=== PATIENT | female | born 1990 | race Caucasian/White ===

== ENCOUNTER 2022-12-25 13:30 | Emergency (ER) | payer OTHER, SELFPAY ==
[2022-12-25] VITALS (21 sets, daily range): BP systolic 122–164; BP diastolic 66–142; PULSE 64–107; RESP 13–23; TEMP 37.3; O2SAT 97–100
--- NOTE | 2022-12-25 13:52 | ECG_ITS ---
The [facility] Test Date: 2022-12-25 Pat Name: ROSALBA ESPINOZA Department: Room: - Gender: Female Floor Sander: : 1990 Requested By: [id number] Order Number: [id number] Reading MD: ARLENE CAMARA Measurements Intervals [place] Rate: 104 P: 79 VT: 122 QRS: 91 QRSD: 76 T: 63 QT: 420 QTc: 480 Interpretive Statements 1120 [address] Inferolateral ST depression, myocardial ischemia can't be excluded 7102 Moderate right axis deviation 8304 Long QTc interval 9150 abnormal ECG No previous ECG available for comparison Electronically Signed On 12-26-2022 7:04:45 EDT by ARLENE CAMARA
[2022-12-25] MEDS: KETOROLAC TROMETHAMINE 30 MG/ML VIAL IVP (14:04)
[2022-12-25] MEDS: ONDANSETRON PF 4 MG/2 ML VIAL IV (14:04)
[2022-12-25] MEDS: 0.9 % SODIUM CHLORIDE 1,000 ML 1000 ML IV (14:05)
--- NOTE | 2022-12-25 14:07 | ED_ITS ---
HPI - Chest Pain General Chief Complaint: Chest Pain Stated Complaint: CHEST PAIN/KNEES & FINGERS NUMB Time Seen by Provider: 12/25/22 13:44 Source: patient Mode of arrival: walk-in Limitations: no limitations History of Present Illness HPI narrative: patient is a 32-year-old female presents the emergency department for the evaluation of substernal chest pain that began one hour ago at rest. She reports some pain into the shoulders and arms. Pain is worse with deep breathing. She has had no recent fevers, cough, congestion. She denies tobacco abuse. No medications taken prior to arrival. She has no history of heart or lung problems. She is not concerned for . she reports a tingling sensation in her hands and lower extremities. Risk Factors Coronary artery disease risk factors: none Related Data Home Medications Medication Instructions Recorded Confirmed No Known Home Medications 12/25/22 12/25/22 Allergies Allergy/AdvReac Type Severity Reaction Status Date / Time No Known Drug Allergies Allergy Verified 12/25/22 13:35 Review of Systems ROS Constitutional Denies: fever or chills Ears, nose, mouth, and throat Denies: throat pain Cardiovascular Reports: chest pain Respiratory Denies: shortness of breath or cough Gastrointestinal Reports: nausea; Denies: abdominal pain Musculoskeletal Denies: back pain Integumentary/Breast Denies: rash Neurological Denies: headache Hematologic/Lymphatic Denies: easy bruising Allergic/Immunologic Denies: hives PFSH [facility] Social History Smoking status: Never smoker Exam Narrative Exam Narrative: Gen.: Awake, alert, in no distress Head: Normocephalic, atraumatic ENT: Moist mucous membranes Respiratory: No respiratory distress, lungs clear bilaterally; mild tenderness of the inferior sternum and epigastrium Cardio: Regular rate and rhythm Gastrointestinal: Abdomen is soft, nondistended and nontender to palpation Extremities: Moves extremities equally, no injuries noted Psych: Normal mood and affect Neuro: No focal neuro deficit Skin: Warm, dry, intact Constitutional Vital Signs, click to edit/add: Last Vital Signs Temp 99.2 F 12/25/22 13:35 Pulse 72 12/25/22 16:01 Resp 16 12/25/22 15:30 BP 124/66 12/25/22 16:01 Pulse Ox 98 12/25/22 16:01 O2 Del Method Room Air 12/25/22 13:35 Course Vital Signs Vital signs: Vital Signs Temperature 99.2 F 12/25/22 13:35 Pulse Rate 103 H 12/25/22 13:35 Respiratory Rate 18 12/25/22 13:35 Blood Pressure 122/84 12/25/22 13:35 Pulse Oximetry 100 12/25/22 13:35 Oxygen Delivery Method Room Air 12/25/22 13:35 Temperature 99.2 F 12/25/22 13:35 Pulse Rate 72 12/25/22 16:01 Respiratory Rate 16 12/25/22 15:30 Blood Pressure 124/66 12/25/22 16:01 Pulse Oximetry 98 12/25/22 16:01 Oxygen Delivery Method Room Air 12/25/22 13:35 MDM - Chest Pain MDM Narrative Medical decision making narrative: EKG shows moderate ST depression but no acute ST elevation or ectopy. This was reviewed by attending physician. Lab studies including d-dimer, troponin and BNP are within normal limits. Patient was noted to have a potassium of 2.9 and was given oral potassium. She was treated with Zofran and Toradol for comfort. She maintains normal cardiac monitoring, chest x-rays unremarkable. Patient was reevaluated by attending physician prior to discharge. Because of ST deviation, BMI greater than thirty, the patient has a heart score of three. She has no other risk factors. She is discharged home to follow-up with her PCP and return to the Emergency Room if symptoms change or worsen. Medical Records Data Attestation: I reviewed the patient's medical records. Lab Data Attestation: I reviewed the patient's lab results. Labs: Lab Results 12/25/22 12/25/22 Range/Units 14:26 14:35 WBC 4.3 (4.0-11.0) 10^3/uL RBC 4.27 (4.20-5.40) 10^6/uL Hgb 11.7 L (12.0-16.0) g/dL Hct 35.8 L (36.0-48.0) % MCV 83.8 (81.0-99.0) fL MCH 27.4 (26.7-34.0) pg MCHC 32.7 (29.9-35.2) g/dL RDW 14.1 (11.0-15.0) % Plt Count 254 (150-450) 10^3/uL MPV 9.7 (9.5-13.5) fL Neut % (Auto) 83.9 H (43.0-75.0) % Lymph % (Auto) 6.5 L (20.5-60.0) % [place] % (Auto) 7.2 (1.7-12.0) % Eos % (Auto) 1.4 (0.9-7.0) % Baso % (Auto) 0.5 (0.2-2.0) % Neut # (Auto) 3.6 (1.4-6.5) 10^3/uL Lymph # (Auto) 0.3 L (1.2-3.8) 10^3/uL [place] # (Auto) 0.3 (0.3-0.8) 10^3/uL Eos # (Auto) 0.1 (0.0-0.7) 10^3/uL Baso # (Auto) 0.0 (0.0-0.1) 10^3/uL Abs Immat Gran (auto) 0.02 (0.00-0.03) 10^3/uL Imm/Tot Granulo (auto) 0.5 (0.0-0.5) % PT 11.4 (9.0-11.6) sec INR 1.08 APTT 30.8 (22.3-36.2) sec D-Dimer 0.39 (<=0.59) mg/L FEU Sodium 137 (136-145) mmol/L Potassium 2.9 L* (3.5-5.1) mmol/L Chloride 107 (98-107) mmol/L Carbon Dioxide 21.0 (21.0-32.0) mmol/L Anion Gap 11.9 BUN 6.0 L (7.0-18.0) mg/dL Creatinine 0.77 (0.55-1.02) mg/dL Est GFR ( Amer) >60 (>=60) Est GFR (Non-Af Amer) >60 (>=60) BUN/Creatinine Ratio 7.8 Glucose 92 (74-106) mg/dL Calcium 7.9 L (8.5-10.1) mg/dL Total Bilirubin 0.4 (0.2-1.0) mg/dL AST 21 (15-37) U/L ALT 25 (14-59) U/L Alkaline Phosphatase 66 (46-116) U/L Troponin I High Sens 4.5 (4.0-51.3) pg/mL NT-Pro-B Natriuret Pep 218.0 (<=450.0) pg/mL Total Protein 7.0 (6.4-8.2) g/dL Albumin 3.5 (3.4-5.0) g/dL Globulin 3.5 g/dL Albumin/Globulin Ratio 1.0 Lipase 75.0 (73.0-393.0) U/L Serum HCG, Qual Negative (NEGATIVE) Urine Color Lt. yellow (YELLOW) Urine Clarity Clear (CLEAR) Urine pH 6.5 (5.0-9.0) Ur Specific [place] <=1.005 A (1.005-1.025) Urine Protein Negative (NEG/TRACE) mg/dL Urine Glucose (UA) Negative (NEGATIVE) mg/dL Urine Ketones Negative (NEGATIVE) mg/dL Urine Occult Blood Moderate A (NEGATIVE) Urine Nitrite Negative (NEGATIVE) Urine Bilirubin Negative (NEGATIVE) Urine Urobilinogen 0.2 (0.2-1.0) EU/dL Ur Leukocyte Esterase Negative (NEGATIVE) Urine RBC 0-2 (0-2) #/HPF Urine WBC None seen (NONE SEEN) #/HPF Ur Squamous Epith Cells None seen (NONE/RARE) #/LPF Urine Bacteria None seen (NONE SEEN) #/HPF Urine Mucus None seen (NONE SEEN) Ur Culture Indicated? No Imaging Data Chest x-ray: Attestation: I have reviewed the pertinent imaging results. Radiologist's impression: Procedure: XR chest 1V EXAMINATION: XR chest 1V HISTORY: Chest pain COMPARISON: None. TECHNIQUE: Portable chest FINDINGS: The lung parenchyma is free of consolidation or infiltrate. No pneumothorax or pleural effusion. The cardiac, mediastinal and hilar contours are normal. The visualized osseous structures exhibit no gross abnormality. IMPRESSION: No acute cardiopulmonary abnormality. Electronically authenticated by: JALEEL AMARAL Date: 12/25/2022 15:59 ECG Data Attestation: I personally reviewed and interpreted this ECG as follows: (normal sinus rhythm at a rate of eighty-seven, moderate ST depression with no acute ST elevation or ectopy. EKG reviewed by attending physician.) Heart Score History: Slightly/Non-Suspicious ECG: Sign. ST Depression Age: <45 years Risk Factors: 1 or 2 Risk Factors Troponin: <Normal Limit Total Heart Score Recommendations & Risks:: 3 Discharge Plan Discharge Chief Complaint: Chest Pain Clinical Impression: Chest pain, Hypokalemia Patient Disposition: Home, Self-Care Time of Disposition Decision: 16:29 Prescriptions / Home Meds: No Action No Known Home Medications Instructions: Chest Pain (ED), Hypokalemia (ED) Stand Alone Forms: Portal Instructions Referrals: Physician,Non-Staff, MD [Primary Care Provider] - 1 week
--- NOTE | 2022-12-25 14:47 | ECG_ITS ---
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
[2022-12-25 14:48] LABS: Basophils Percent Auto 0.5 % (0.2-2.0); Eosinophils Absolute Auto 0.1 10^3/uL (0.0-0.7); Eosinophils Percent Auto 1.4 % (0.9-7.0); Hematocrit 35.8 % (36.0-48.0); Hemoglobin 11.7 g/dL (12.0-16.0); Immature Granulocytes Abs Auto 0.02 10^3/uL (0.00-0.03); Immature Granulocytes Pct Auto 0.5 % (0.0-0.5); Lymphocytes Absolute Auto 0.3 10^3/uL (1.2-3.8); Lymphocytes Percent Auto 6.5 % (20.5-60.0); Mean Corpuscular HGB Conc 32.7 g/dL (29.9-35.2); Mean Corpuscular Hemoglobin 27.4 pg (26.7-34.0); Mean Corpuscular Volume 83.8 fL (81.0-99.0); Mean Platelet Volume 9.7 fL (9.5-13.5); Monocytes Absolute Auto 0.3 10^3/uL (0.3-0.8); Monocytes Percent Auto 7.2 % (1.7-12.0); Neutrophils Absolute Auto 3.6 10^3/uL (1.4-6.5); Neutrophils Percent Auto 83.9 % (43.0-75.0); Platelet Count 254 10^3/uL (150-450); Red Blood Count 4.27 10^6/uL (4.20-5.40); Red Cell Distribution Width 14.1 % (11.0-15.0); White Blood Count 4.3 10^3/uL (4.0-11.0)
[2022-12-25 14:53] LABS: HCG Qualitative NEGATIVE (NEGATIVE)
[2022-12-25 15:00] LABS: D Dimer 0.39 mg/L FEU (<=0.59); INR 1.08; Partial Thromboplastin Time 30.8 sec (22.3-36.2); Prothrombin Time 11.4 sec (9.0-11.6)
--- NOTE | 2022-12-25 15:06 | XR_ITS ---
The [address] [address] Patient Name: ROSALBA ESPINOZA MRN: [id number] date: 1990 Sex: F Assigned Patient Location: ER Current Patient Location: ER Accession/Order Number: [id number] Exam Date: 12/25/2022 15:30 Report Date: 12/25/2022 15:59 At the request of: ANDRES DAILEY Procedure: XR chest 1V EXAMINATION: XR chest 1V HISTORY: Chest pain COMPARISON: None. TECHNIQUE: Portable chest FINDINGS: The lung parenchyma is free of consolidation or infiltrate. No pneumothorax or pleural effusion. The cardiac, mediastinal and hilar contours are normal. The visualized osseous structures exhibit no gross abnormality. XR/XR chest 1V IMPRESSION: No acute cardiopulmonary abnormality. Electronically authenticated by: JALEEL AMARAL Date: 12/25/2022 15:59
[2022-12-25 15:34] LABS: Bilirubin Urine NEGATIVE (NEGATIVE); Blood Urine MODERATE (NEGATIVE); Clarity Urine CLEAR (CLEAR); Color Urine LT. YELLOW (YELLOW); Glucose Urine UA NEGATIVE (NEGATIVE); Ketones Urine NEGATIVE (NEGATIVE); Leukocyte Esterase Urine NEGATIVE (NEGATIVE); Nitrite Urine NEGATIVE (NEGATIVE); Protein Urine NEGATIVE (NEG/TRACE); Specific Gravity Urine <=1.005 (1.005-1.025); Urobilinogen Urine 0.2 EU/dL (0.2-1.0); pH Urine 6.5 (5.0-9.0)
[2022-12-25 15:37] LABS: Urine Microscopic Indicated YES
[2022-12-25 15:45] LABS: WBC Urine NONE SEEN #/HPF (NONE SEEN)
[2022-12-25 15:46] LABS: Bacteria Urine NONE SEEN #/HPF (NONE SEEN); Mucus Urine NONE SEEN (NONE SEEN); RBC Urine 0-2 #/HPF (0-2); Squamous Epithelial Cell Urine NONE SEEN #/LPF (NONE/RARE); Urine Culture Indicated NO
[2022-12-25 15:51] LABS: Alanine Aminotransferase 25 U/L (14-59); Albumin Level 3.5 g/dL (3.4-5.0); Alkaline Phosphatase 66 U/L (46-116); Anion Gap 11.9; Aspartate Amino Transferase 21 U/L (15-37); BUN Creatinine Ratio 7.8; Bilirubin Total 0.4 mg/dL (0.2-1.0); Calcium 7.9 mg/dL (8.5-10.1); Chloride 107 mmol/L (98-107); Estimated GFR (African America >60 (>=60); Estimated GFR (Non-African Ame >60 (>=60); Globulin 3.5 g/dL; Glucose 92 mg/dL (74-106); Sodium 137 mmol/L (136-145); Troponin I High Sensitivity 4.5 pg/mL (4.0-51.3)
[2022-12-25 15:52] LABS: Potassium 2.9 mmol/L (3.5-5.1)
[2022-12-25] MEDS: POTASSIUM CHLORIDE 10 MEQ ER TABLET 40 MEQ PO (16:01)
== END 2022-12-25 16:42 | disposition home or self-care (01) ==
PROVIDERS: Physician Assistant; Emergency Provider Emergency Medicine Emergency Medical Services; PCP Internal Medicine
DX: R07.9 Chest pain, unspecified (principal); E87.6 Hypokalemia
CPT/HCPCS: 36415; 71045; 80053; 81001; 83690; 83880; 84484; 84703; 85025; 85378; 85610; 85730; 93005; 96374; 96375; 99285

== ENCOUNTER 2024-11-15 21:38 | Emergency (ER) | payer OTHER, SELFPAY ==
[2024-11-15 21:42] VITALS: BP 159/84; PULSE 88; TEMP 36.6; O2SAT 100; BMI 32.0
--- NOTE | 2024-11-15 21:55 | ED.UPPEXIN1 ---
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 Continued to catch more crowd surfers after the initial injury. Noticed increased discomfort this past saturday and went to urgent care. Given muscle relaxant and medrol dose apoorva. Left work tonight and came here because of the continued pain. No weakness or numbness. No neck pain or other injury Related Data Home Medications ?Medication ?Instructions ?Recorded ?Confirmed No Known Home Medications 12/25/22 12/25/22 Allergies Allergy/AdvReac Type Severity Reaction Status Date / Time No Known Drug Allergies Allergy Verified 12/25/22 13:35 Opioid HPI Opioid Management Most Recent Pain and Opioid Data: Last Pain Scale 5 12/25/22, 14:04 Review of Systems ROS Status of ROS 10 or more systems reviewed and unremarkable except as noted in history and below PFSH PFSH Social History Smoking status: Never smoker Little interest or pleasure in doing things: not at all Feeling down, depressed, or hopeless: not at all Exam Constitutional Vital Signs, click to edit/add: Last Vital Signs Temp 97.8 F 11/15/24 21:42 Pulse 88 11/15/24 21:42 Resp 18 11/15/24 21:42 BP 159/84 H 11/15/24 21:42 Pulse Ox 100 11/15/24 21:42 Common normals: no apparent distress, average body habitus, oriented x3, no limitations, healthy appearing, alert and well nourished [facility] Common normals: normocephalic and head/scalp atraumatic Eye Common normals: EOMs intact bilaterally and conjunctivae normal Respiratory Common normals: normal respiratory effort, no retractions, no use of accessory muscles and clear to auscultation bilaterally Cardio Common normals: regular rate, regular rhythm, S1 normal heart sound and S2 normal heart sound Extremity Common normals: normal to inspection Other: focal tenderness left shoulder at glenoid humeral joint. FROM of the shoulder but uncomfortable. No deformity Neuro Common normals: oriented x3, CN's II-XII intact bilaterally, moves all extremities and no focal motor deficits Psych Appearance: grossly normal Course Vital Signs Vital signs: Vital Signs Temperature 97.8 F 11/15/24 21:42 Pulse Rate 88 11/15/24 21:42 Respiratory Rate 18 11/15/24 21:42 Blood Pressure 159/84 H 11/15/24 21:42 Pulse Oximetry 100 11/15/24 21:42 Temperature 97.8 F 11/15/24 21:42 Pulse Rate 88 11/15/24 21:42 Respiratory Rate 18 11/15/24 21:42 Blood Pressure 159/84 H 11/15/24 21:42 Pulse Oximetry 100 11/15/24 21:42 MDM - Extremity Injury (Upper) MDM Narrative Medical decision making narrative: patient injured left shoulder one week ago at a concert. Was catching crowd surfers. Seen at urgent care and reports xray of the shoulder was normal. Discharged home on medrol dosepak and muscle relaxant . Now presents because of continued pain. Exam with findings supportive of strain of the shoulder. Given prednisone and advised she needs to be seen by orthopedics. 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
== END 2024-11-15 22:23 | disposition home or self-care (01) ==
PROVIDERS: Emergency Provider Internal Medicine
DX: S46.912A Strain of unspecified muscle, fascia and tendon at shoulder and upper arm level, left arm, initial encounter (principal); X50.0XXA Overexertion from strenuous movement or load, initial encounter
CPT/HCPCS: 99283

== ENCOUNTER 2024-11-22 15:36 | Emergency (ER) | payer OTHER, SELFPAY ==
[2024-11-22 15:39] VITALS: BP 131/80; PULSE 90; TEMP 36.9; O2SAT 100; BMI 29.3
--- NOTE | 2024-11-22 16:10 | ED.UPPEXIN1 ---
HPI HPI - Extremity Injury (Upper) General Chief Complaint: Extremity Injury, Upper Stated Complaint: UE INJURY Time Seen by Provider: 11/22/24 15:45 Source: patient Mode of arrival: walk-in Limitations: no limitations History of Present Illness HPI narrative: Patient presented to the emergency department with a complaint of left shoulder pain. She recently about 3 weeks ago had an injury to her left shoulder and followed up with orthopedics orthopedics has diagnosed her with a labral tear. She states she was on a couple weeks of steroids which did help mildly however did not want to be continued on steroids per her orthopedic. She states her pain is crampy also in the left side of her upper trapezius area. 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 Patient denies any chest pain or shortness of breath no numbness or ting of the extremity. She does try to splint the extremity against her body occasionally unsuccessful. She is very guarded about moving it through range of motion due to this discomfort. She has been taking ibuprofen with no relief at this time. She has had no new injury. MD complaint: injury to: Reports shoulder Onset (ago): week(s) Other Extremity Injury: Left: shoulder Other injuries: Reports none Hand dominance: right Place: Reports other Severity: moderate Exacerbating factors: Reports movement of extremity Context: Reports other Associated symptoms: Reports denies other symptoms Related Data Previous Rx's ?Medication ?Instructions ?Recorded diclofenac sodium 50 mg 50 mg PO Q12H #20 tabs 11/22/24 tablet,delayed release hydrocodone 5 mg-acetaminophen 325 1 tab PO Q8H PRN pain (scale score 11/22/24 mg tablet 7-10) #10 tabs methocarbamol 500 mg tablet 500 mg PO Q8H #20 tabs 11/22/24 Allergies Allergy/AdvReac Type Severity Reaction Status Date / Time No Known Drug Allergies Allergy Verified 12/25/22 13:35 Opioid HPI Opioid Management Most Recent Pain and Opioid Data: Last Pain Scale 7 Today, 15:45 Last ED Pain Assessment 11/15/24, 22:00 [facility] Social History Smoking status: Never smoker Little interest or pleasure in doing things: not at all Feeling down, depressed, or hopeless: not at all Exam Constitutional Vital Signs, click to edit/add: Last Vital Signs Temp 98.4 F 11/22/24 15:39 Pulse 90 11/22/24 15:39 Resp 18 11/22/24 15:39 BP 131/80 11/22/24 15:39 Pulse Ox 100 11/22/24 15:39 O2 Del Method Room Air 11/22/24 15:39 Neck & C-Spine Common normals: full ROM, no lymphadenopathy and supple General: normal visual inspection Cervical spine: paracervical muscle spasm Respiratory Common normals: normal respiratory effort Auscultation: clear to auscultation bilaterally Cardio Common normals: regular rate, regular rhythm and no murmurs Rate: regular rate Rhythm: regular rhythm Back & Pelvis Common normals: no CVA tenderness, thoracic and lumbar spine normal to inspection and no thoracic nor lumbar tenderness Extremity General: normal exam except as noted Left upper extremity: shoulder joint (intact) Left shoulder joint: palpation (tender), ROM (painful) and neurovascular exam Neuro Common normals: oriented x3 Sensorium/orientation: awake and alert Gait (neuro): normal gait Sensory exam: extremities Motor exam: strength 5/5 throughout Psych Common normals: mental status grossly normal Attitude: calm and engaged Speech: normal speech Course Vital Signs Vital signs: Vital Signs Temperature 98.4 F 11/22/24 15:39 Pulse Rate 90 11/22/24 15:39 Respiratory Rate 18 11/22/24 15:39 Blood Pressure 131/80 11/22/24 15:39 Pulse Oximetry 100 11/22/24 15:39 Oxygen Delivery Method Room Air 11/22/24 15:39 Temperature 98.4 F 11/22/24 15:39 Pulse Rate 90 11/22/24 15:39 Respiratory Rate 18 11/22/24 15:39 Blood Pressure 131/80 11/22/24 15:39 Pulse Oximetry 100 11/22/24 15:39 Oxygen Delivery Method Room Air 11/22/24 15:39 MDM - Extremity Injury (Upper) MDM Narrative Medical decision making narrative: Patient presented to the emergency department with a complaint of left shoulder pain. She recently about 3 weeks ago had an injury to her left shoulder and followed up with orthopedics orthopedics has diagnosed her with a labral tear. She states she was on a couple weeks of steroids which did help mildly however did not want to be continued on steroids per her orthopedic. She states her pain is crampy also in the left side of her upper trapezius area. 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 Patient denies any chest pain or shortness of breath no numbness or ting of the extremity. She does try to splint the extremity against her body occasionally unsuccessful. She is very guarded about moving it through range of motion due to this discomfort. She has been taking ibuprofen with no relief at this time. She has had no new injury. Patient is alert and oriented no acute distress. She does have tenderness in the glenohumeral joint. Difficult to move her through range of motion due to pain. She has good sensation distally. She has no pain in the forearm and hand. She has spasm in the upper trapezius area to the left side. No vertebral tenderness step-off ecchymosis or edema. Patient's heart lung exam are unremarkable. No other positive exam findings. She is currently awaiting MRI and further orthopedic intervention. Her recent coming in today is because of increased pain and irritation as well as ability to work. With her injury I do not feel that imaging would be beneficial at this time. After evaluating the patient's previous charts and doing her evaluation I will give her something for pain recommend she wear a splint intermittently not all the time just for support for couple hours a day. She is also given a work note. Patient will follow-up with orthopedics as discussed. All her questions were answered she is neurovascularly intact no other concerns or issues at this time. I reviewed the patient's previous charts. Her last visit here she was given steroids and referred to orthopedics. She is currently waiting an MRI I have reviewed the past medical, family, and social history sections including the medications and allergies listed in the above medical record. Differential Diagnosis Differential diagnosis: Likely sprain and strain of wrist Medical Records Attestation: I reviewed the patient's medical records. Discharge Plan Discharge Stand Alone Forms: Work/School Release Chief Complaint: Extremity Injury, Upper Clinical Impression: Left shoulder strain Qualifiers: Encounter type: subsequent encounter Qualified Code(s): S46.912D - Strain of unspecified muscle, fascia and tendon at shoulder and upper arm level, left arm, subsequent encounter Patient Disposition: Home, Self-Care Time of Disposition Decision: 16:15 Condition: Good Prescriptions / Home Meds: New diclofenac sodium 50 mg tablet,delayed release (DR/EC) 50 mg PO Q12H Qty: 20 0RF methocarbamol 500 mg tablet 500 mg PO Q8H Qty: 20 0RF hydrocodone-acetaminophen 5-325 mg tablet 1 tab PO Q8H PRN (Reason: pain (scale score 7-10)) Qty: 10 0RF Print Language: Pakistani Instructions: Muscle Strain (DC), Rotator Cuff Injury (ED) Referrals: Physician,Non-Staff, MD [Primary Care Provider] - 1 week Discharge Date/Time: 11/22/24 16:39
== END 2024-11-22 16:39 | disposition home or self-care (01) ==
PROVIDERS: Emergency Provider Student in an Organized Health Care Education/Training Program
DX: S46.912A Strain of unspecified muscle, fascia and tendon at shoulder and upper arm level, left arm, initial encounter (principal)
CPT/HCPCS: 99283